=== PATIENT | female | born 1995 | race Two or more races ===

== ENCOUNTER 2018-08-14 11:53 | Emergency (ER) | payer MEDICAID ==
[~2018-08-14] VITALS: Ht 165.1 cm; Wt 52.2 kg
[2018-08-14 12:16] VITALS: BP 135/84
[2018-08-14] MEDS ORDERED: diphenhdrAMINE HCL 25 MG CAP PO ONE (15:15)
[2018-08-14] MEDS ORDERED: KETOROLAC TROMETH 60MG/2ML VIAL IM ONE (15:15)
[2018-08-14] MEDS ORDERED: PROMETHAZINE HCL 25 MG/ML 1ML IM ONE (15:15)
== END 2018-08-14 15:56 | disposition home or self-care (01) ==
LOC: ER 11:53
DX: R51 Headache (principal); R42 Dizziness and giddiness
CPT/HCPCS: 96372; 99283; J1885; J2550

== ENCOUNTER 2018-08-27 17:08 | Emergency (ER) | payer MEDICAID ==
[~2018-08-27] VITALS: Ht 165.1 cm; Wt 54.4 kg
[2018-08-27 17:16] VITALS: BP 118/73
[2018-08-27 21:19] LABS: Urine Bacteria FEW /hpf (None Seen); Urine Blood Negative /uL (Negative); Urine Mucus FEW (None Seen); Urine Specific Gravity 1.021 (1.001-1.035); Urine WBC 7 /hpf (0 - 5)
[2018-08-27] MEDS ORDERED: KETOROLAC TROMETH 60MG/2ML VIAL IM ONE (21:30)
== END 2018-08-27 22:45 | disposition home or self-care (01) ==
LOC: ER 17:11
DX: R55 Syncope and collapse (principal); N39.0 Urinary tract infection, site not specified
CPT/HCPCS: 70450; 81001; 81025; 96372; 99284; J1885

== ENCOUNTER 2019-04-01 18:59 | Emergency (ER) | payer MEDICAID ==
[~2019-04-01] VITALS: Ht 165.1 cm; Wt 63.5 kg
[2019-04-01] MEDS ORDERED: LORazepam 0.5 MG TAB PO ONE (19:45)
[2019-04-01 20:19] LABS: Basophils # (auto) 0.1 uL; Basophils % (auto) 0.6 % (0.0-2.0); Eosinophils # (auto) 0 uL; Eosinophils % (auto) 0.1 % (0.0-7.0); Hematocrit 40.7 % (36.0-46.0); Hemoglobin 13.2 g/dL (12.2-16.2); Lymphocytes # (auto) 1.7 uL; Lymphocytes % (auto) 15.2 % (10.0-50.0); Mean Corpuscular Hemoglobin 27.3 pg (28.0-32.0); Mean Corpuscular Hgb Conc. 32.5 g/dL (32.0-36.0); Mean Corpuscular Volume 84.1 fL (80.0-100.0); Monocytes # (auto) 1.2 uL; Monocytes % (auto) 10.3 % (0.0-12.0); Neutrophils # (auto) 8.3 uL; Neutrophils % (auto) 73.8 % (37.0-80.0); Platelet Count (auto) 176 10^3/uL (140-450); Red Blood Cells 4.83 10^6/uL (4.0-5.20); Red Cell Distribution Width 14.9 % (11.8-14.3); White Blood Cell 11.3 10^3/uL (4.4-10.8)
[2019-04-01 20:37] LABS: Alcohol, Urine < 3.0 mg/dL (0-5); Opiate Scree,Urine NEGATIVE (NEGATIVE)
[2019-04-01 20:38] LABS: Amphetamine Screen, Urine NEGATIVE (NEGATIVE); Barbiturate Scree,Urine NEGATIVE (NEGATIVE); Benzodiazephine Screen, Urine NEGATIVE (NEGATIVE); Cannabinoid Screen, Urine POSITIVE (NEGATIVE); Cocaine Screen, Urine NEGATIVE (NEGATIVE); Phencyclidine Screen, Urine NEGATIVE (NEGATIVE)
[2019-04-01 20:39] LABS: Urine Pregnacy Test Negative (Negative)
[2019-04-01 20:48] LABS: Acetaminophen < 2.0 ug/mL (10-30); Salicylate < 1.7 mg/dL (2.8-20.0)
[2019-04-01 20:49] LABS: Alanine Aminotransferase 9 U/L (13-56); Albumin 3.9 g/dL (3.4-5.0); Anion Gap 10 (5-15); Aspartate Aminotransferase 9 U/L (15-37); BUN/Creatinine Ratio 8.8; Blood Alcohol < 3.0 mg/dL (0-5); Blood Urea Nitrogen 7 mg/dL (7-18); Calcium 8.5 mg/dL (8.5-10.1); Carbon Dioxide 20 mmol/L (21-32); Chloride 109 mmol/L (98-107); GFR African American 112 mL/min; GFR Non-African American 93 mL/min; Glucose 83 mg/dL (74-106); Potassium 3.6 mmol/L (3.5-5.1); Sodium 139 mmol/L (136-145)
[2019-04-01 20:51] LABS: Alkaline Phosphatase 33 U/L (45-117); Bilirubin, Total 1.1 mg/dL (0.2-1.0); Total Protein 7.2 g/dL (6.4-8.2)
[2019-04-01 21:04] LABS: Urine Bacteria NONE SEEN /hpf (None Seen); Urine Blood Negative /uL (Negative); Urine Mucus FEW (None Seen); Urine WBC 2 /hpf (0 - 5)
[2019-04-01 22:04] VITALS: BP 112/64
== END 2019-04-02 03:14 | disposition home or self-care (01) ==
LOC: ER 18:59
DX: F23 Brief psychotic disorder (principal); F41.9 Anxiety disorder, unspecified; F32.9 Major depressive disorder, single episode, unspecified
CPT/HCPCS: 36415; 80053; 80307; 80320; 80329; 81001; 81025; 85025

== ENCOUNTER 2019-06-25 07:06 | Emergency (ER) | payer MEDICAID ==
[~2019-06-25] VITALS: Ht 165.1 cm; Wt 63.5 kg
[2019-06-25 12:13] VITALS: BP 111/75
== END 2019-06-25 12:29 | disposition home or self-care (01) ==
LOC: ER 07:06
DX: I77.6 Arteritis, unspecified (principal); F12.10 Cannabis abuse, uncomplicated; Z88.0 Allergy status to penicillin

== ENCOUNTER 2021-09-20 13:08 | Emergency (ER) | payer MEDICAID ==
[~2021-09-20] VITALS: Ht 165.1 cm; Wt 54.4 kg
[2021-09-20 13:43] LABS: Urine Bacteria NONE SEEN /hpf (None Seen); Urine Blood 2+ /uL (Negative); Urine Mucus FEW (None Seen); Urine Specific Gravity 1.021 (1.001-1.035); Urine WBC 1 /hpf (0 - 5)
[2021-09-20 14:51] LABS: Basophils # (auto) 0 10 ^3/uL (0-0.2); Basophils % (auto) 0.5 % (0.0-2.0); Eosinophils # (auto) 0.1 10 ^3/uL (0-0.8); Eosinophils % (auto) 0.7 % (0.0-7.0); Hematocrit 33.5 % (36.0-46.0); Hemoglobin 11.8 g/dL (12.2-16.2); Lymphocytes # (auto) 1.8 10 ^3/uL (0.4-5.4); Lymphocytes % (auto) 16.2 % (10.0-50.0); Mean Corpuscular Hemoglobin 29.4 pg (28.0-32.0); Mean Corpuscular Hgb Conc. 35.2 g/dL (32.0-36.0); Mean Corpuscular Volume 83.5 fL (80.0-100.0); Monocytes # (auto) 1.2 10 ^3/uL (0-1.3); Monocytes % (auto) 11.2 % (0.0-12.0); Neutrophils # (auto) 7.7 10 ^3/uL (1.6-8.6); Neutrophils % (auto) 71.4 % (37.0-80.0); Nucleated Red Blood Cells % 0.1 %; Red Blood Cells 4.01 10^6/uL (4.0-5.20); White Blood Cell 10.8 10^3/uL (4.4-10.8)
[2021-09-20 15:07] LABS: INR 0.97 (0.9-1.15); Partial Thromboplastin Time 28.8 sec (23.6-33.0)
[2021-09-20 16:07] VITALS: BP 116/57
[2021-09-20 16:16] LABS: Albumin 3.1 g/dL (3.4-5.0); Calcium 8.3 mg/dL (8.5-10.1); Potassium 3.9 mmol/L (3.5-5.1)
[2021-09-20 16:19] LABS: BUN/Creatinine Ratio 11.5; Bilirubin, Total 0.3 mg/dL (0.2-1.0); Total Protein 6.3 g/dL (6.4-8.2)
[2021-09-20] MEDS ORDERED: CEFP200T15 PO (16:32)
== END 2021-09-20 16:56 | disposition home or self-care (01) ==
LOC: ER 13:08
DX: O20.8 Other hemorrhage in early pregnancy (principal); Z3A.15 15 weeks gestation of pregnancy
CPT/HCPCS: 36415; 76805; 80053; 81001; 84702; 85025; 85610; 85730; 86850; 86900; 86901

== ENCOUNTER 2021-11-30 09:33 | Emergency (ER) | payer MEDICAID ==
[~2021-11-30] VITALS: Ht 165.1 cm; Wt 72.6 kg
[~2021-11-30 09:33] MED LIST: CEFP200T15 PO
[2021-11-30] MEDS ORDERED: SODIUM CHLORIDE 0.9% 1,000 ML IV ONE (10:00)
[2021-11-30 11:08] LABS: Basophils # (auto) 0 10 ^3/uL (0-0.2); Basophils % (auto) 0.3 % (0.0-2.0); Eosinophils # (auto) 0 10 ^3/uL (0-0.8); Eosinophils % (auto) 0.3 % (0.0-7.0); Hematocrit 33.5 % (36.0-46.0); Hemoglobin 11.2 g/dL (12.2-16.2); Lymphocytes # (auto) 1.2 10 ^3/uL (0.4-5.4); Lymphocytes % (auto) 10.4 % (10.0-50.0); Mean Corpuscular Hemoglobin 27.8 pg (28.0-32.0); Mean Corpuscular Hgb Conc. 33.5 g/dL (32.0-36.0); Monocytes # (auto) 1.1 10 ^3/uL (0-1.3); Monocytes % (auto) 9.6 % (0.0-12.0); Neutrophils # (auto) 9.5 10 ^3/uL (1.6-8.6); Neutrophils % (auto) 79.4 % (37.0-80.0); Red Blood Cells 4.03 10^6/uL (4.0-5.20); Red Cell Distribution Width 13.7 % (11.8-14.3); White Blood Cell 11.9 10^3/uL (4.4-10.8)
[2021-11-30 11:22] LABS: Potassium 3.4 mmol/L (3.5-5.1)
[2021-11-30 11:27] LABS: Albumin 2.8 g/dL (3.4-5.0); BUN/Creatinine Ratio 13.7; Calcium 8.1 mg/dL (8.5-10.1)
[2021-11-30 11:29] LABS: Bilirubin, Total 0.3 mg/dL (0.2-1.0); Total Protein 6.2 g/dL (6.4-8.2)
[2021-11-30] MEDS ORDERED: ONDANSETRON HCL 4 MG/2 ML VIAL IV ONE (15:30)
[2021-11-30] MEDS ORDERED: CEPH-509 PO (17:58)
[2021-11-30 18:20] VITALS: BP 102/57
== END 2021-11-30 18:35 | disposition home or self-care (01) ==
LOC: ER 09:33 → EDBD 09:33 → ER 18:35
DX: O20.8 Other hemorrhage in early pregnancy (principal); R55 Syncope and collapse; E86.0 Dehydration; Z53.21 Procedure and treatment not carried out due to patient leaving prior to being seen by health care provider; Z3A.26 26 weeks gestation of pregnancy
CPT/HCPCS: 36415; 76805; 80053; 84702; 85025; 93005; 96361; 96374; 99285; J2405; J7030